=== PATIENT | male | born 1995 | race Hispanic/Latino ===

== ENCOUNTER 2017-09-02 19:38 | Emergency (ER) | payer SELFPAY ==
[2017-09-02 19:39] VITALS: BMI 25.8
[2017-09-02 19:47] VITALS: BP 117/79; PULSE 110; RESP 18; TEMP 99.4; O2SAT 97
[2017-09-02] MEDS ORDERED: Bacitracin 500 Units/gm Oint Foilpak UD TOP ONE (21:15)
[2017-09-02] MEDS ORDERED: Epinephrine /Lidocaine HCL 1:100,000/2% 30 ml INJ ONE (21:15)
[2017-09-02] MEDS ORDERED: Bacitracin 500 Units/gm Oint Foilpak UD ONE (21:18)
[2017-09-02] MEDS ORDERED: Lidocaine 2% w Epi 1:100,000 Inj IJ ONE (21:18)
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
== END 2017-09-02 21:34 | disposition home or self-care (01) ==
LOC: C.ER 19:38 → SUPCPDRO 19:38 → C.ER 21:34
DX: S01.01XA Laceration without foreign body of scalp, initial encounter (principal); W01.0XXA Fall on same level from slipping, tripping and stumbling without subsequent striking against object, initial encounter

== ENCOUNTER 2017-09-23 17:26 | Emergency (ER) | payer SELFPAY ==
[2017-09-23 17:26] VITALS: BMI 25.8
[2017-09-23 17:39] VITALS: BP 100/63; PULSE 100; RESP 18; TEMP 97.9; O2SAT 98
--- NOTE | 2017-09-23 17:49 | C.PDOC ---
History Of Present Illness 21 yo male come in for scheduled marcela removal after laceration over Right side forehead was closed here in ED on 09/02/17. Pt denies wound redness, discahrges, increase pain or any other active complaints. Ambulate to Ed for evaluation, not in nay apparent distress. Time Seen by Provider: 09/23/17 17:29 Chief Complaint (Nursing): Abnormal Skin Integrity History Per: Patient Past Medical History Reviewed: Historical Data, Nursing Documentation, Vital Signs Vital Signs: Last Vital Signs Temp 97.9 F 09/23/17 17:37 Pulse 100 H 09/23/17 17:37 Resp 18 09/23/17 17:37 BP 100/63 09/23/17 17:37 Pulse Ox 98 09/23/17 17:55 - Medical History PMH: Denies: Diabetes, Hepatitis, HIV, HTN, Seizures, Sexually Transmitted Disease Family History: States: Unknown Family Hx - Social History Hx Tobacco Use: Yes Hx Alcohol Use: Yes Hx Substance Use: No (xanax, benzo) - Immunization History Hx Tetanus Toxoid Vaccination: Yes (2016) Hx Influenza Vaccination: Yes Hx Pneumococcal Vaccination: Yes Review Of Systems Except As Marked, All Systems Reviewed And Found Negative. Constitutional: Negative for: Fever, Chills Skin: Positive for: Lesions Neurological: Negative for: Weakness, Numbness, Altered Mental Status, Headache , Dizziness Physical Exam - Physical Exam Appears: Well, Non-toxic, No Acute Distress Skin: Normal Color, Warm Head: Normacephalic, Laceration (Right side forehead laceration closed with stpales #2. no edema, no erythema, no wound discharges.) Eye(s): bilateral: PERRL Ear(s): Bilateral: Normal Neurological/Psych: Oriented x3, Normal Speech ED Course And Treatment O2 Sat by Pulse Oximetry: 98 Progress Note: On re-eval, pt is afebrile, hemodynamicaly stable. Non-toxic. Head: (+) well healing laceration Right side forehead closed with stpales. No cellulitis. No deformity. WOund cleaned, stpales removed. pt advised on wound care. ref. to f/u with PMD as need for further eval. Disposition - Disposition Referrals: [facility] at [facility] [Outside] Disposition: HOME/ ROUTINE Disposition Time: 17:49 Condition: STABLE Additional Instructions: Apply antibiotic cream topically daily for 7 days Follow up with PMD as need for further evaluation and treatment. Instructions: Staple Removal Forms: [employer] (Lithuanian) - Clinical Impression Clinical Impression: Removal of marcela
[2017-09-23] MEDS ORDERED: Bacitracin 500 Units/gm Oint Foilpak UD ONE (17:59)
== END 2017-09-23 18:00 | disposition home or self-care (01) ==
LOC: C.ER 17:26
DX: Z48.02 Encounter for removal of sutures (principal); Z72.0 Tobacco use

== ENCOUNTER 2017-12-23 18:11 | Emergency (ER) | payer MEDICAID, OTHER ==
[2017-12-23 18:13] VITALS: BMI 25.8
[2017-12-23 18:16] VITALS: BP 124/73; PULSE 81; RESP 20; TEMP 98.9; O2SAT 97
--- NOTE | 2017-12-23 18:30 | C.PDOC ---
History Of Present Illness 22 year old male presents to the emergency department requesting suture removal to the right eyebrow that were placed in [facility] about 10 days ago. Denies any active complaints. Time Seen by Provider: 12/23/17 18:20 Chief Complaint (Nursing): Suture/Staple Removal History Per: Patient History/Exam Limitations: no limitations Current Symptoms Are (Timing): Better Past Medical History Vital Signs: Last Vital Signs Temp 98.9 F 12/23/17 18:14 Pulse 81 12/23/17 18:14 Resp 20 12/23/17 18:14 BP 124/73 12/23/17 18:14 Pulse Ox 97 12/23/17 19:07 - Medical History PMH: Denies: Diabetes, Hepatitis, HIV, HTN, Seizures, Sexually Transmitted Disease Family History: States: Unknown Family Hx - Social History Hx Tobacco Use: Yes Hx Alcohol Use: Yes Hx Substance Use: No (xanax, benzo) - Immunization History Hx Tetanus Toxoid Vaccination: Yes (2016) Hx Influenza Vaccination: Yes Hx Pneumococcal Vaccination: Yes Review Of Systems Except As Marked, All Systems Reviewed And Found Negative. (As per HPI, otherwise negative) Constitutional: Negative for: Other (No active complaints) Skin: Positive for: Other (suture removal to the right eyebrow) Physical Exam - Physical Exam Appears: Well, Non-toxic, No Acute Distress Skin: Normal Color, Warm Head: Normacephalic, Laceration (Right parietal scalp laceration closed with marcela #2, well healed, no edmea, no erythema, no wound discharges. No palpable deformity.) Eye(s): bilateral: PERRL, EOMI, right: Other (well healed laceration above Right eyebrow closed with sutures#2. clean/dry/intact, no periorbital edema or erythema.) Neurological/Psych: Oriented x3, Normal Speech ED Course And Treatment O2 Sat by Pulse Oximetry: 97 (RA) Pulse Ox Interpretation: Normal Progress Note: On re-evaluation, pt is afebrile, hemodynamicalys table. Non- toxic. head: marcela removed #2 without difficulty. Right eye: sutures removed w/o difficulty #2. No evidence of cellulitis or wound dehisence. Pt advised on wound care. ref. to f/u with PMD in 2-3 days for re-eval as need Medical Decision Making Medical Decision Making: Time: 1827 --Patient is medically clear for discharge. Follow up with PMD s need for further evaluation and treatment. Apply antibiotic cream topically to wound for better healing Disposition Counseled Patient/Family Regarding: Diagnosis, Need For Followup - Disposition Referrals: [facility] at [facility] [Outside] Disposition: HOME/ ROUTINE Disposition Time: 18:28 Condition: STABLE Additional Instructions: Follow up with PMD s need for further evaluation and treatment Apply antibiotic cream topically to wound for better healing Instructions: Stitches Removal, Staple Removal Forms: [employer] (Ethiopian) - Clinical Impression Clinical Impression: Removal of suture, Removal of marcela - Scribe Statement Scribe Attestation: Documented by Nhi Hernandez, acting as a scribe for Yudelka Acosta PA-C. ~ Provider Scribe Attestation: All medical record entries made by the Scribe were at my direction and personally dictated by me. I have reviewed the chart and agree that the record accurately reflects my personal performance of the history, physical exam, medical decision making, and the department course for this patient. I have also personally directed, reviewed, and agree with the discharge instructions and disposition. ~ ~ ~
== END 2017-12-23 18:45 | disposition home or self-care (01) ==
LOC: C.ER 18:11
DX: Z48.02 Encounter for removal of sutures (principal)

== ENCOUNTER 2018-01-26 19:40 | Emergency (ER) | payer MEDICAID, OTHER ==
[2018-01-26 19:40] VITALS: BMI 25.8
[2018-01-26 20:19] VITALS: RESP 16
[2018-01-26] MEDS ORDERED: Bacitracin 500 Units/gm Oint Foilpak UD TOP ONE (20:23)
--- NOTE | 2018-01-26 20:26 | C.PDOC ---
History Of Present Illness 22 y/o male presents to the ED for evaluation of left hand laceration which he sustained yesterday. Patient states he tripped over a rug, causing his hand to go through a glass window. Ambulance was called, but patient decided not to come to the hospital at the time. As patient was taking off wound dressing today , he felt like it was stuck to his skin and now presents for evaluation. Patient states he is right hand dominant. He denies head injury, LOC, extremity numbness/weakness. Time Seen by Provider: 01/26/18 20:04 Chief Complaint (Nursing): Abnormal Skin Integrity History Per: Patient History/Exam Limitations: no limitations Onset/Duration Of Symptoms: Hrs Current Symptoms Are (Timing): Still Present Location Of Injury: Left: Hand Additional History Per: Patient Past Medical History Reviewed: Historical Data, Nursing Documentation, Vital Signs Vital Signs: Last Vital Signs Temp 98.9 F 01/26/18 20:45 Pulse 68 01/26/18 20:45 Resp 16 01/26/18 20:45 BP 109/73 01/26/18 20:45 Pulse Ox 97 01/26/18 22:41 - Medical History PMH: No Chronic Diseases Denies: Diabetes, Hepatitis, HIV, HTN, Seizures, Sexually Transmitted Disease Surgical History: No Surg Hx Family History: States: Unknown Family Hx - Social History Hx Tobacco Use: Yes Hx Alcohol Use: Yes Hx Substance Use: No (xanax, benzo) - Immunization History Hx Tetanus Toxoid Vaccination: Yes (2016) Hx Influenza Vaccination: No Hx Pneumococcal Vaccination: No Review Of Systems Skin: Positive for: Other (laceration to left hand ) Neurological: Negative for: Weakness, Numbness Physical Exam - Physical Exam Appears: Well, Non-toxic, No Acute Distress Skin: Warm, Dry, Other ((+) 2 cm avulsion to the left thumb (+) superficial healed lacerations to left hand ) Head: Atraumatic, Normacephalic Eye(s): bilateral: Normal Inspection, EOMI Oral Mucosa: Moist Neck: Normal ROM, Supple Chest: Symmetrical Respiratory: No Accessory Muscle Use Extremity: Normal ROM, Capillary Refill (less than 2 seconds ) Pulses: Left Radial: Normal Neurological/Psych: Oriented x3, Normal Speech, Normal Cognition, Normal Motor, Normal Sensation Gait: Steady ED Course And Treatment O2 Sat by Pulse Oximetry: 97 (on RA) Pulse Ox Interpretation: Normal Progress Note: Wound irrigated thoroughly, bacitracin applied and dressed. Bacitracin TOP applied. Pt was offered xr, though declined. Patient is advised wound care and to follow up with PMD within 1-2 days for further evaluation. Disposition - Disposition Disposition: HOME/ ROUTINE Disposition Time: 20:26 Condition: STABLE Additional Instructions: Watch for signs of infection including redness, swelling and discharge. Wound check with your primary doctor in 1-2 days. 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 - Scribe Statement The provider has reviewed the documentation as recorded by the Scribe (Louise Frank) All medical record entries made by the Scribe were at my direction and personally dictated by me. I have reviewed the chart and agree that the record accurately reflects my personal performance of the history, physical exam, medical decision making, and the department course for this patient. I have also personally directed, reviewed, and agree with the discharge instructions and disposition.
[2018-01-26] MEDS ORDERED: Bacitracin 500 Units/gm Oint Foilpak UD ONE (20:36)
[2018-01-26 20:46] VITALS: BP 109/73; PULSE 68; TEMP 98.9
[2018-01-26 21:30] VITALS: O2SAT 97
== END 2018-01-26 20:53 | disposition home or self-care (01) ==
LOC: C.ER 19:40
DX: S61.412A Laceration without foreign body of left hand, initial encounter (principal); W01.110A Fall on same level from slipping, tripping and stumbling with subsequent striking against sharp glass, initial encounter; Y92.89 Other specified places as the place of occurrence of the external cause